=== PATIENT | female | born 1975 | race Caucasian/White ===

== ENCOUNTER 2021-01-06 07:45 | Inpatient (IN) ==
[2021-01-06] MEDS ORDERED: *HR* Midazolam HCl 2 MG/2 ML VIAL ONE (09:19)
[2021-01-06] MEDS ORDERED: *HR* Propofol 200 MG/20 ML VIAL IVP ONE (09:19)
[2021-01-06] MEDS ORDERED: *HR* FentaNYL (PF) 100 MCG/2 ML VIAL ONE (09:19)
[2021-01-06] MEDS ORDERED: Lidocaine -MPF 2% 2 ML VIAL ONE ×2 (09:21→11:37)
[2021-01-06] MEDS ORDERED: Lidocaine HCL 4 ML Topical Solution (Laryng-O-Jet Kit Sterile Pak) TP ONE (09:21)
[2021-01-06] MEDS ORDERED: Ondansetron 4 MG/2 ML VIAL ONE (09:21)
[2021-01-06] MEDS ORDERED: *HR* Rocuronium Bromide 50 MG/5 ML VIAL ONE ×2 (09:21→11:54)
[2021-01-06] MEDS ORDERED: Sugammadex Sodium 200 MG/2 ML VIAL IV ONE (09:21)
[2021-01-06] MEDS ORDERED: levoFLOXacin 500 MG/100 ML 500 MG/100 ML BAG IVPB ONE (09:47)
[2021-01-06] MEDS ORDERED: MetroNIDAZOLE 500 MG/100 ML 500 MG/100 ML BAG IVPB ONE ×2 (09:47→10:37)
[2021-01-06] MEDS ORDERED: Ringers Solution, Lactated 1,000 ML IVC SCH ×2 (10:00→13:43)
[2021-01-06] MEDS ORDERED: *HR* OxyCODONE Immed Rel 5 MG TABLET PO PRN (10:07)
[2021-01-06] MEDS ORDERED: Ondansetron 4 MG/2 ML VIAL IVP PRN ×2 (10:07→13:43)
[2021-01-06] MEDS ORDERED: *HR* HYDROmorphone PF 0.5 MG/0.5 ML SYRINGE IVP PRN (10:07)
[2021-01-06] MEDS ORDERED: Bupivacaine 0.5%-Epi 1:200,000 50 ML VIAL ONE (10:13)
[2021-01-06] MEDS ORDERED: *HR* HYDROMORPHONE 2 MG/ML VIAL ONE (11:10)
[2021-01-06] MEDS ORDERED: Naloxone 0.4 MG/ML INJ IVP PRN (13:43)
[2021-01-06] MEDS ORDERED: Acetaminophen 650 MG RECTAL SUPP RC PRN (13:43)
[2021-01-06] MEDS: *HR* HYDROcodone/Acet 5/325 mg TABLET PO PRN ×2 (16:28→20:56)
[2021-01-06] MEDS ORDERED: Ondansetron ODT 4 MG TAB.RAPDIS SL PRN (17:23)
[2021-01-07] MEDS: *HR* OxyCODONE/APAP 5/325 TABLET PO PRN ×2 (00:11→05:01)
[2021-01-07 00:26] VITALS: O2SAT 95
[2021-01-07 04:26] VITALS: TEMP 98.2
[2021-01-07 07:56] VITALS: BP 126/71; PULSE 73
== END 2021-01-07 08:40 | disposition home or self-care (01) | DRG 743 ==
LOC: EDSTATUS 10:10 → 1NENUOBS 13:41
PROVIDERS: ADMIT Obstetrics & Gynecology; ATTEND Obstetrics & Gynecology